=== PATIENT | female | born 1980 | race Caucasian/White ===

== ENCOUNTER 2020-09-16 10:40 | Outpatient (CLI) | payer OTHER ==
[2020-09-16] MEDS ORDERED: GLYBURIDE5 M1 PO (11:00)
== END 2020-09-16 16:09 | disposition home or self-care (01) ==
LOC: D.LDO 10:40
PROVIDERS: ATTEND Obstetrics & Gynecology
DX: O24.419 Gestational diabetes mellitus in pregnancy, unspecified control (principal)

== ENCOUNTER 2020-11-08 04:58 | Inpatient (IN) | payer OTHER ==
[~2020-11-08] VITALS: Ht 154.9 cm; Wt 101.6 kg
[~2020-11-08 04:58] MED LIST: GLYBURIDE5 M1 PO
[2020-11-08] MEDS ORDERED: GLUCOPHAGE500 MG PO (05:11)
[2020-11-08] MEDS ORDERED: XANAX0.5 MG PO (05:12)
[2020-11-08 05:13] VITALS: BP 125/73; Ht 154.9 cm; Wt 101.6 kg
[2020-11-08] MEDS ORDERED: NORMODYNE / TR200 MG PO (05:13)
[2020-11-08 06:16] LABS: BASOPHILS 0.2 % (0-2); EOSINOPHILS 2.3 % (0-7); HEMOGLOBIN 12.6 g/dL (12-16); IMMATURE GRANULOCYTES 0.4 % (0-5); LYMPHOCYTES 22.2 % (15-50); MCHC 34.1 g/dL (31.0-37.0); MCV 85.1 fL (80.0-100.0); MEAN PLATELET VOLUME 9.8 fL (7.4-10.4); MONOCYTES 7.1 % (2-11); NEUTROPHILS 67.8 % (40-80); PLATELET COUNT 284 10x3/uL (130-400); RBC 4.35 10x6/uL (4.00-5.40); RDW 12.7 % (11.5-14.5); WBC 9.9 10x3/uL (4.8-10.8)
[2020-11-08 06:26] LABS: UDS - AMPHET NEGATIVE QUAL (NEGATIVE); UDS - BARB NEGATIVE QUAL (NEGATIVE); UDS - BENZO POSITIVE QUAL (NEGATIVE); UDS - COCAINE NEGATIVE QUAL (NEGATIVE); UDS - OPIATE NEGATIVE QUAL (NEGATIVE); UDS - PCP NEGATIVE QUAL (NEGATIVE); UDS - THC NEGATIVE QUAL (NEGATIVE)
[2020-11-09] VITALS (10 sets, daily range): BP systolic 92–123; BP diastolic 54–91
[2020-11-09 05:53] LABS: BASOPHILS 0.2 % (0-2); EOSINOPHILS 0.2 % (0-7); IMMATURE GRANULOCYTES 0.3 % (0-5); LYMPHOCYTE ABS# 1.32 10x3/uL (1.18-3.74); LYMPHOCYTES 8.5 % (15-50); MCH 28.8 pg (26.0-34.0); MCHC 33.2 g/dL (31.0-37.0); MCV 86.7 fL (80.0-100.0); MEAN PLATELET VOLUME 9.2 fL (7.4-10.4); MONOCYTES 4.9 % (2-11); NEUTROPHIL ABS# 13.41 10x3/uL (1.56-6.13); NEUTROPHILS 85.9 % (40-80); PLATELET COUNT 261 10x3/uL (130-400); RDW 12.7 % (11.5-14.5)
[2020-11-09 05:54] LABS: HEMATOCRIT 28.6 % (36.0-48.0); HEMOGLOBIN 9.5 g/dL (12-16); WBC 15.6 10x3/uL (4.8-10.8)
[2020-11-09 06:11] LABS: RAPID PLASMA REAGIN Non Reactive (Non Reactive)
--- NOTE | 2020-11-09 06:13 | NUR ---
PT REC'D TO LABOR AND DELIVERY FROM SURGERY. IV TO THE RT HAND. LR PLACED ON PUMP AT 125 ML/HR. SITE CLEAR AND PATENT. PERICARE PERFORMED AT THIS TIME. LARGE CLOT EXPELLED AT THIS TIME. SCDS PLACED AND FUNCTIONAL. S/O AT THE BEDSIDE. NO DISTRESS NOTED. Elizabeth MORRIS RN
--- NOTE | 2020-11-09 08:30 | NUR ---
PT IS RESTING WITHOUT SIGNS OF DISTRESS, SIDE RAILS UP X 2 WITH CALL LIGHT IN REACH.
--- NOTE | 2020-11-09 09:30 | NUR ---
PT AWAKE AND ALERT, RATES PAIN AT 2/10. ASSESSMENT CHARTED TO FLOWSHEET. FSBS [address] YEPEZ CALLED ABOUT DUE TO SLIDING SCALE, HOLD INSULIN AT THIS TIME DUE TO PT NPO STATUS. CBC DRAWN PER THIS RN AND LAB NOTIFIED FOR MANAGED CARE LIAISON.
--- NOTE | 2020-11-09 09:48 | NUR ---
PT SITTING UP ON SIDE OF BED WITHOUT COMPLAINT OF NAUSEA OR DIZZINESS. AMB TO BATHROOM AND VOIDS 400ML WITH 2 SMALL CLOTS NOTED. SHE DENIES PAIN OR BURNING WITH VOIDS. ON WAY BACK TO BED SHE DOES C/O DIZZINESS BUT CONTINUE TO DENY NAUSEA. LARGE ICE WATER PROVIDED AND SHE UNDERSTANDS TO NOT GET UP WITHOUT CALLING FOR NURSE.
[2020-11-09 10:57] LABS: BASOPHILS 0.1 % (0-2); EOSINOPHILS 0.2 % (0-7); HEMOGLOBIN 8.8 g/dL (12-16); IMMATURE GRANULOCYTES 0.4 % (0-5); LYMPHOCYTE ABS# 1.51 10x3/uL (1.18-3.74); LYMPHOCYTES 10.8 % (15-50); MCH 28.9 pg (26.0-34.0); MCHC 33.8 g/dL (31.0-37.0); MCV 85.5 fL (80.0-100.0); MEAN PLATELET VOLUME 9.7 fL (7.4-10.4); MONOCYTES 8.1 % (2-11); NEUTROPHIL ABS# 11.22 10x3/uL (1.56-6.13); NEUTROPHILS 80.4 % (40-80); PLATELET COUNT 270 10x3/uL (130-400); RBC 3.04 10x6/uL (4.00-5.40); RDW 12.8 % (11.5-14.5)
--- NOTE | 2020-11-09 12:02 | NUR ---
DR EYPEZ ON UNIT WITH LABS REVIEWED, MAY ADVANCE DIET PATIENT TOLERATES. CBC TO BE REDRAWN AT 1600.
--- NOTE | 2020-11-09 12:30 | NUR ---
UP TO VOID CONTINUE TO COMPLAIN OF DIZZINESS BUT STATES IT IS NOT BAD. VSS AND RATES PAIN AT 2/10. REGULAR DIET TRAY SERVED PER DIETARY CALL LIGHT IN REACH.
--- NOTE | 2020-11-09 14:55 | NUR ---
TORDAL GIVEN FOR COMPLAINT OF CRAMPING. LARGE ICE WATER REQUESTED.
[2020-11-09 16:54] LABS: BASOPHILS 0.2 % (0-2); EOSINOPHILS 0.7 % (0-7); HEMATOCRIT 23.1 % (36.0-48.0); HEMOGLOBIN 7.7 g/dL (12-16); IMMATURE GRANULOCYTES 0.3 % (0-5); LYMPHOCYTE ABS# 1.91 10x3/uL (1.18-3.74); LYMPHOCYTES 15.5 % (15-50); MCH 28.6 pg (26.0-34.0); MCHC 33.3 g/dL (31.0-37.0); MCV 85.9 fL (80.0-100.0); MEAN PLATELET VOLUME 8.9 fL (7.4-10.4); MONOCYTES 8.5 % (2-11); NEUTROPHIL ABS# 9.23 10x3/uL (1.56-6.13); NEUTROPHILS 74.8 % (40-80); PLATELET COUNT 228 10x3/uL (130-400); RBC 2.69 10x6/uL (4.00-5.40); WBC 12.3 10x3/uL (4.8-10.8)
--- NOTE | 2020-11-09 17:00 | NUR ---
SALINE LOCK TO RIGHT HAND FLUSHED EASILY, NS FLUID BOLUS STARTED. 2ND IV TO LEFT FOREARM WITH 18GAUGE X 1 ATTEMPT PER D. GIO. THIS SITE IS SALINE LOCKED. FSBS 138 PER SLIDING SCALE NO ACTIONS NEEDED. PT VOIDED 300 WHILE RN WAS IN ROOM. DENIED DIZZINESS. REGULAR DIET TRAY SERVED PER DIETARY. CALL LIGHT IN REACH.
--- NOTE | 2020-11-09 18:48 | NUR ---
BEDSIDE REPORT COMPLETED WITH KARINA CRISOSTOMO RN
--- NOTE | 2020-11-09 19:30 | NUR ---
PT SITTING UP A,A,OX4. VSS. SEE FULL ASSESSMENT PER FLOWSHEET. FF,MIDLINE U2. SMALL AMOUNT RUBRA LOCHIA ON PERIPAD. PIV IN RT HAND INFUSING NS AT 500 ML/HR. LT HAND PIV SALINE LOCKED, C/D/I. PT DENIES NEEDS AT THIS TIME. CALL LIGHT WITHIN REACH, SRUP X2.
--- NOTE | 2020-11-09 20:45 | NUR ---
ICE WATER PROVIDED. PT DENIES NEEDS AT THIS TIME.
--- NOTE | 2020-11-09 21:06 | NUR ---
BLOOD SUGAR 191. PT REPORTS JUST EATING SANDWICH 30 MINUTES AGO. WILL RECHECK BLOOD SUGAR IN HOUR AND A HALF. PT VOIDS THIRD TIME. 150 MLS YELLOW BLOOD TINGED URINE. QUARTER SIZED CLOT IN [place] HAT.
--- NOTE | 2020-11-09 21:14 | NUR ---
MEDICATIONS ADMINSTERED PER EMAR. PT DENIES NEEDS AT THSI TIME.
[2020-11-09 21:42] LABS: HEMATOCRIT 21.7 % (36.0-48.0)
[2020-11-09 21:46] LABS: HEMOGLOBIN 7.2 g/dL (12-16)
--- NOTE | 2020-11-09 22:02 | NUR ---
NOTIFIED DR YEPEZ OF CRITICAL [facility] 7.2, ORDER RECEIVED TO REVIEW TREATMENT OPTION FOR BLOOD TRANSFUSION AND IF PT AGREEABLE WILL TRANSFUSE WITH 2 UNITS.
--- NOTE | 2020-11-09 22:45 | NUR ---
PRBC FIRST UNIT INITIATED INFUSING AT 50 ML/HR. VSS. THIS RN AT BEDSIDE. WILL CONTINUE TO MONITOR.
[2020-11-09 22:53] LABS: ANION GAP 13.6 mmol/L (8-16); CALCIUM 8.6 mg/dL (8.5-10.1); CARBON DIOXIDE 24.2 mmol/L (21.0-32.0); CREATININE - SERUM 0.9 mg/dL (0.6-1.3); POTASSIUM - SERUM 3.8 mmol/L (3.5-5.1)
--- NOTE | 2020-11-09 23:15 | NUR ---
VSS. PT DENIES NEEDS. CONTINUING TO MONITOR BLOOD TRANSFUSION.
[2020-11-10] VITALS: BP 101/52
--- NOTE | 2020-11-10 | NUR ---
PT RESTING WITH EYES CLOSED, BREATHING NONLABORED. VSS.
[2020-11-10 00:15] VITALS: BP 96/57
--- NOTE | 2020-11-10 01:15 | NUR ---
VSS. PT RESTING WITH EYES CLOSED, BREATHING NONLABORED.
[2020-11-10 02:00] VITALS: BP 103/60
--- NOTE | 2020-11-10 02:00 | NUR ---
FIRST UNIT PRBC INFUSION COMPLETE. VSS.
--- NOTE | 2020-11-10 02:30 | NUR ---
SECOND UNIT PRBC INITIATED INFUSING AT 50 ML/HR FOR FIRST 15 MINUTES. VSS.
--- NOTE | 2020-11-10 05:13 | NUR ---
2ND UNIT BLOOD COMPLETED, SL TO RIGHT FA FLUSHED WITH 10 ML NS, SITE BENIGN TO INSPECTION, PT DENIES NEEDS/CONCERNS AT PRESENT, C/L IN EASY REACH, VSS. WILL MONITOR.
--- NOTE | 2020-11-10 06:52 | NUR ---
C/O SHARP STABBING ABD PAIN AND CRAMPING, 6-710. PERCOCET GIVEN PER REQUEST AND ORDER. ICE WATER PROVIDED. DENIES ADDITIONAL NEEDS. BED IN LOW POSITION WITH SRUP X2. CALL LIGHT AND PHONE WITHIN REACH.
[2020-11-10 08:31] VITALS: BP 128/68
--- NOTE | 2020-11-10 08:31 | NUR ---
SHIFT ASSESSMENT COMPLETED PER FLOWSHEET. VSS. SCANT TO SMALL AMT LUIS LOCHIA PRESENT ON PAD, NO CLOTS NOTED. C/O ABD CRAMPING 10/05. MOTRIN PROVIDED. B/P 128/, LABETAOLOL HELD PER PT REQUEST. REFUSES FSBS D/T ALREADY EATING BREAKFAST MEALS. STATES THAT SHE TAKES PO MEDS AT HOME FOR BLOOD SUGARS. POC DISCUSSED WITH PT AND EDUCATED ON S/S TO REPORT TO RN, VERBALIZES UNDERSTANDING. SCD'S ON BLE. SL NOTED TO R HAND, FLUSHES WITHOUT DIFFICULTY, NO S/S OF INFILTRATION NOTED. WATER AND APPLE JUICE PROVIDED. DENIES ADDITIONAL NEEDS. BED IN LOW POSITION WITH SRUP X2. CALL LIGHT AND PHONE WITHIN REACH.
--- NOTE | 2020-11-10 08:42 | NUR ---
DR. YEPEZ NOTIFIED OF B/P READING AND PT REQUEST TO NOT PERFORM FSBS D/T EATING MORNING MEAL WELL PT REPORTS OF PASSING LITTLE FLATUS AND FEELING THE URGE TO PASS MORE BUT BEING UNABLE TO. PER DR. YEPEZ SHE WILL PLACE ORDERS.
--- NOTE | 2020-11-10 09:24 | NUR ---
PAIN NOW 08/07. DENIES NEED FOR ADDITIONAL INTERVENTION. REPORTS THAT SHE DID PASS "A LITTL BIT" OF FLATUS FOLLOWING RN LEAVING ROOM. DENIES NEEDS. UPDATED ON POC CHANGES, VERBALIZES UNDERSTANDING AND DENIES QUESTIONS. BED IN LOW POSITION WITH SRUP X2. CALL LIGHT AND PHONE WITHIN REACH.
[2020-11-10 09:48] LABS: HEMATOCRIT 30.6 % (36.0-48.0); HEMOGLOBIN 10.3 g/dL (12-16)
--- NOTE | 2020-11-10 10:41 | NUR ---
RESTING QUIETLY WITH EYES CLOSED, RESP REGULAR AND UNLABORED, NO S/S OF DISTRESS NOTED. BED IN LOW POSITION WITH SRUP X2. CALL LIGHT AND PHONE WITHIN REACH.
[2020-11-10 11:33] VITALS: BP 121/72
--- NOTE | 2020-11-10 11:33 | NUR ---
FSBS 131, MEDICATED PER EMAR. EDUCATED ON MOM AND GAS-X, VERBALIZES UNDERSTANDING. REPORTS THAT SHE HAS STARTED PASSING FLATUS. ENCOURAGED TO AMBULATE, VERBALIZES UNDERSTANDING. EKG DONE AND PLACED ON CHART. VSS. SMALL AMT RUBRA LOCHIA NOTED TO PERIPADS, NO CLOTS SINCE PREVIOUS AM ASSESSMENT. C/O ABD CRAMPING 2/10, DENIES NEED FOR INTERVENTION AND VERBALIZES THAT SHE WILL NOTIFY RN IF SHE NEEDS MEDS. BED IN LOW POSITION WITH SRUP X2. CALL LIGHT AND PHONE WITHIN REACH.
--- NOTE | 2020-11-10 12:43 | NUR ---
AMBULATING IN ROOM. DENIES PAIN AND NEEDS. STEADY GAIT NOTED.
--- NOTE | 2020-11-10 14:06 | NUR ---
R HAND PIV SL D/C'D WITH TIP INTACT PER PT REQUEST. L FA PIV D/C'D WITH TIP INTACT. BANDAIDS APPLIED. PT STATES THAT SHE IS GOING TO SHOWER. REFUSES LINEN CHANGE, STATES THAT DR. YEPEZ HAD SPOKEN WITH HER AND SHE WILL BE D/C'D THIS EVENING. STEADY GAIT NOTED. DENIES PAIN AND NEEDS.
--- NOTE | 2020-11-10 16:09 | NUR ---
VERBAL AND WRITTEN D/C INSTRUCTIONS GIVEN TO PT AND SIGNIFICANT OTHER. BOTH VERBALIZE UNDERSTANDING. PT STATES THAT SHE HAS MEMORY BOX PACKED. PRESCRIPTION PROVIDED. PT AND SPOUSE VERBALIZE UNDERSTANDING AND DENY QUESTIONS. PT OFF UNIT IN W/C WITH THIS RN IN STABLE CONDITION.
[2020-11-10] MEDS ORDERED: PERCOCET 5-3251 TAB PO (16:13)
[2020-11-10] MEDS ORDERED: IBUPROFEN800 MG PO (16:13)
[2020-11-10] MEDS ORDERED: CELEXA20 MG PO (16:14)
--- NOTE | 2020-11-11 13:06 | OP ---
PATIENT NAME: BIRDIE TUBBS MEDICAL RECORD: [id number] :82 LOCATION:[facility] [id number] ADMISSION DATE:11/08/20 SURGEON: MIKE RICO DO DATE OF OPERATION: 11/09/2020 PREOPERATIVE DIAGNOSES: Retained placenta, 16-week loss, hypertension, pregestational diabetes, obesity, advanced maternal age POSTOPERATIVE DIAGNOSES: Retained placenta, 16-week loss, hypertension, pregestational diabetes, obesity, advanced maternal age, postopartum hemorrhage PRIMARY SURGEON: Mike Rico DO ANESTHESIA: General endotracheal tube. PROCEDURE: Dilation and curettage with suction. FINDINGS: Enlarged uterus, moderate products of conception. SPECIMENS: Products of conception in formalin and saline. EBL: 200 cc. IV FLUIDS: 1250 cc. INFECTION PROPHYLAXIS: 200 mg doxycycline. COMPLICATIONS: None. Due to retained placenta, the patient was counseled on the risks of D&C including bleeding, pain, infection, damage to surrounding structures such as the bowel, bladder and neurovascular structures, uterine perforation, formation of scar tissue, VTE, and risk of reoperation. The patient expressed understanding and agreed to proceed with D&C. DESCRIPTION OF PROCEDURE: The patient was taken to the operating room where general anesthesia was administered and found to be adequate. She was prepped and draped in normal sterile fashion in dorsal lithotomy position with Yellofin stirrups. A speculum was placed into the vagina. Difficult to visualize cervix due to redundent tissue, so four-walled speculum utilized. Cervix visualzied and dilated Anterior lip was grasped of cervix and medium Banjo curette used for gentle curettage of the uterine cavity. 11 straight curette, which was the largest size available, was then used. to suction products. The suction removed and medium Banjo curette was used again in a clockwise fashion to curettage, and suction curettage reintroduced to remove products. Medium amount bleeding noted at os, so additional pass with banjo and then suction currette. Os monitored and bleeding minimal. Tenaculum removed. Some bleeding at tenaculum site. Silver nitrate used with good hemostasis. All instruments were removed. Lap, needle and instrument counts correct times 2. The patient was awakened and then taken to recovery room in stable condition. TRANSINT:[id number] Voice Confirmation ID: [id number] DOCUMENT ID: [id number] OPERATIVE REPORT [id number] BIRDIE TUBBS SUCHITA DO at 1306 CC: [id number] DICTATION DATE: 11/10/202000 PLAQUE MAKER: 11/10/20 2359 DIS IN 11/10/20 [facility] [address] [id number]
== END 2020-11-10 16:42 | disposition home or self-care (01) | DRG 805 ==
LOC: D.LDO 04:58 → D.LD 05:39
PROVIDERS: ADMIT Obstetrics & Gynecology; ATTEND Obstetrics & Gynecology
PROC: 10E0XZZ Delivery of Products of Conception, External Approach (ICD-10-PCS; 2020-11-08)
PROC: 10D17Z9 Manual Extraction of Products of Conception, Retained, Via Natural or Artificial Opening (ICD-10-PCS; principal; 2020-11-09 04:00)
DX: O36.4XX0 Maternal care for intrauterine death, not applicable or unspecified (principal); O24.12 Pre-existing type 2 diabetes mellitus, in childbirth; Z37.1 Single stillbirth; O72.0 Third-stage hemorrhage; Z3A.16 16 weeks gestation of pregnancy; O32.1XX0 Maternal care for breech presentation, not applicable or unspecified; O99.214 Obesity complicating childbirth; E66.9 Obesity, unspecified; E11.9 Type 2 diabetes mellitus without complications; O99.893 Other specified diseases and conditions complicating puerperium; R00.0 Tachycardia, unspecified; O90.81 Anemia of the puerperium; D64.9 Anemia, unspecified